=== PATIENT | female | born 1980 | race Caucasian/White ===

== ENCOUNTER 2020-12-19 10:36 | Outpatient (REF) | payer OTHER, SELFPAY ==
--- NOTE | ~2020-12-19 | MM_ITS ---
EXAMINATION: MM SCREENING DIGITAL BREAST TOMOSYNTHESIS, BILATERAL CLINICAL INFORMATION: Screening. Asymptomatic. The lifetime risk of breast cancer based on the Tyrer-Cuzick Model is 19%. COMPARISON: Mammography: 11/09/2019 (baseline) TECHNIQUE: Digital breast tomosynthesis is performed in both the craniocaudal and mediolateral oblique views along with computer-aided detection (CAD). Synthesized 2D images are generated from the tomosynthesis. Additional bilateral exaggerated CC views are provided. FINDINGS: The breasts are heterogeneously dense, which may obscure small masses (ACR BI-RADS breast composition Category c). There are no significant masses, abnormal calcifications, or other abnormalities. There is a group of benign coarse calcifications again seen mid upper outer right breast. The axilla and skin contours are unremarkable. MM/MM tomosynthesis screening BI IMPRESSION: No mammographic evidence of malignancy. ASSESSMENT: BI-RADS 2: Benign RECOMMENDATION: Routine annual mammography screening. This patient's information was entered into a reminder system with a target due date for their next mammogram.
== END 2020-12-19 10:37 | disposition home or self-care (01) ==
LOC: HO.MAMMO 10:36
PROVIDERS: PCP Internal Medicine; Visit Provider Internal Medicine
DX: Z12.31 Encounter for screening mammogram for malignant neoplasm of breast (principal)
CPT/HCPCS: 77063; 77067

== ENCOUNTER 2021-02-21 00:38 | Emergency (ER) | payer MEDICAID, SELFPAY ==
[2021-02-21 00:46] VITALS: BP 146/80; PULSE 56; RESP 18; TEMP 36.3; O2SAT 99; BMI 26.6
[2021-02-21 01:07] LABS: COVID-19 Test Negative (Negative)
--- NOTE | 2021-02-21 01:08 | ED.GENADULT ---
HPI - General Adult General Chief complaint: General Medical Stated complaint: Covid exposure/Cough Time Seen by Provider: 02/21/21 01:07 Source: patient Mode of arrival: ambulatory Limitations: no limitations History of Present Illness HPI narrative: Patient on vaccines against COVID-19 had COVID last year does not believe in COVID vaccine her mother is admitted here with COVID positive patient had cold symptoms 1 week ago now feeling better wanted to get tested for COVID Review of Systems Review of Systems: Yes all other systems are reviewed and are negative FOR[facility]LY [facility] Social History Social History Advance Directives: No Physical Exam Vital Signs: Vital Signs: Last Vital Signs Temp 97.4 F 02/21/21 00:46 Pulse 56 02/21/21 00:46 Resp 18 02/21/21 00:46 BP 146/80 H 02/21/21 00:46 Pulse Ox 99 02/21/21 00:46 BMI result Body Mass Index 26.6 Appearance: Alert. Oriented X3. No acute distress. ENT: Pharynx normal. Oral Mucosa moist Neck: Normal inspection. Neck supple. CVS: Normal heart rate and rhythm. Pulses normal. Respiratory: No respiratory distress. Equal air entry bilateral Abdomen: Soft and nontender. Bowel sounds are present, Skin: Skin warm and dry. Normal skin color. Normal skin turgor. Extremities: No lower extremity edema. No calf tenderness Neuro: Oriented X 3. Medical Decision Making Lab Data Lab results reviewed: Yes I reviewed the patient's lab results. Labs: Lab Results 02/21/21 Range/Units 00:48 COVID-19 ([facility]) Negative (Negative) COVID-19 Clin Com See Note Discharge Plan Discharge Clinical Impression: Close exposure to 2019-nCoV Patient Disposition: Home, Self-Care Instructions: COVID-19 (Coronavirus Disease 2019) (ED) Additional Instructions: Keep social distancing At this time you COVID-19 is negative recheck in few days if symptoms continues/shortness of breath
== END 2021-02-21 01:50 | disposition home or self-care (01) ==
PROVIDERS: Emergency Provider Internal Medicine; PCP Internal Medicine
DX: R05.9 Cough, unspecified (principal); Z20.822 Contact with and (suspected) exposure to COVID-19
CPT/HCPCS: 36415; 87635; 99283

== ENCOUNTER 2021-06-26 11:12 | Outpatient (REF) | payer MEDICAID, SELFPAY ==
[2021-06-26 12:57] LABS: MANUAL DIFF FLAG NO
[2021-06-26 13:10] LABS: Basophils Percent Auto 0.6 % (0-2); Eosinophils Absolute Auto 0.1 X10*3/uL (0.0-0.4); Eosinophils Percent Auto 1.7 % (0-4); Hematocrit 37.9 % (37.0-47.0); Hemoglobin 12.1 g/dl (12.0-16.0); Imm Gran Abs Auto 0.01 X10*3/uL (0.00-0.03); Imm Gran Pct Auto 0.2 % (0.0-0.4); Lymphocytes Absolute Auto 1.4 X10*3/uL (1.2-4.9); Lymphocytes Percent Auto 26.8 % (20-40); Mean Corpuscular HGB Conc 31.9 g/dl (31.0-35.0); Mean Corpuscular Hemoglobin 27.9 pg (27.0-33.0); Mean Corpuscular Volume 87.3 fL (80.0-98.0); Mean Platelet Volume 12.7 fL (9.4-12.3); Monocytes Absolute Auto 0.4 X10*3/uL (0.1-1.2); Monocytes Percent Auto 7.7 % (2-11); Neutrophils Absolute Auto 3.4 x10*3/uL (2.0-8.3); Platelet Count 215 X10*3/uL (160-400); Red Blood Count 4.34 X10*6/uL (4.20-5.50); Red Cell Distribution Width 14.7 % (11.0-16.0); White Blood Count 5.3 X10*3/uL (4.8-10.8)
[2021-06-26 13:32] LABS: Ferritin 10 ng/mL (10-250)
== END 2021-06-26 11:13 | disposition home or self-care (01) ==
LOC: HO.10HDL 11:12
PROVIDERS: Visit Provider Internal Medicine
DX: D50.8 Other iron deficiency anemias (principal)
CPT/HCPCS: 36415; 82728; 85025

== ENCOUNTER 2021-12-23 10:30 | Outpatient (REF) | payer BC, SELFPAY ==
--- NOTE | ~2021-12-23 | MM_ITS ---
EXAMINATION: MM SCREENING DIGITAL BREAST TOMOSYNTHESIS, BILATERAL CLINICAL INFORMATION: Screening. Asymptomatic. The lifetime risk of breast cancer based on the Tyrer-Cuzick Model is 21%. Additional annual screening with breast MRI may be of benefit in women with a score of 20% or greater. COMPARISON: Mammography: December 19, 2020 and November 09, 2019 TECHNIQUE: Digital breast tomosynthesis is performed in both the craniocaudal and mediolateral oblique views along with computer-aided detection (CAD). Synthesized 2D images are generated from the tomosynthesis. FINDINGS: The breasts are extremely dense, which lowers the sensitivity of mammography (ACR BI-RADS breast composition Category d). There are no significant masses, abnormal calcifications, or other abnormalities. MM/MM tomosynthesis screening BI IMPRESSION: No significant change from ASSESSMENT: BI-RADS 1: Negative RECOMMENDATION: Routine annual mammography screening. This patient's information was entered into a reminder system with a target due date for their next mammogram.
== END 2021-12-23 10:31 | disposition home or self-care (01) ==
LOC: HO.MAMMO 10:30
PROVIDERS: Visit Provider Internal Medicine
DX: Z12.31 Encounter for screening mammogram for malignant neoplasm of breast (principal)
CPT/HCPCS: 77063; 77067

== ENCOUNTER 2022-12-26 10:16 | Outpatient (REF) | payer BC, SELFPAY | END 2022-12-26 10:17 | disposition home or self-care (01) | LOC: HO.MAMMO 10:16 | PROVIDERS: PCP Internal Medicine; Visit Provider Internal Medicine | DX: Z12.31 Encounter for screening mammogram for malignant neoplasm of breast (principal) | CPT/HCPCS: 77063; 77067 ==

== ENCOUNTER → 2022-12-26 10:30 | Outpatient (BNV) | payer BC, SELFPAY | PROVIDERS: PCP Internal Medicine; Visit Provider Radiology Diagnostic Radiology | DX: Z12.31 Encounter for screening mammogram for malignant neoplasm of breast (principal) | CPT/HCPCS: 77063; 77067 ==

== ENCOUNTER 2023-06-30 19:49 | Emergency (ER) | payer BC, SELFPAY ==
[2023-06-30 20:55] VITALS: BP 149/84; PULSE 62; RESP 16; TEMP 36.4; O2SAT 100; BMI 26.6
[2023-06-30 22:10] VITALS: BP 128/54; PULSE 51; RESP 12; TEMP 36.4; O2SAT 100
--- NOTE | 2023-06-30 22:15 | PC.NURSE ---
Pt aox4 resting at the bedside. VSS. No apparent distress. Pt reports was cutting bread when accidentally cut index finger left hand. Reports throbbing pain, 4/10. Laceration noted to the tip of the index finger. Not currently bleeding. Bandaid applied. Pending physician eval. Monitoring is ongoing.
--- NOTE | 2023-07-01 01:53 | ED.GENADULT ---
HPI - General Adult General Chief complaint: Wound/Laceration Stated complaint: left pointer finger wound Time Seen by Provider: 07/01/23 01:27 Source: patient Mode of arrival: ambulatory Limitations: no limitations History of Present Illness HPI narrative: Patient left without completing treatment. Patient left before I could evaluate or speak to her. Related Data Allergies Allergy/AdvReac Type Severity Reaction Status Date / Time No Known Allergies Allergy Verified 06/30/23 20:59 [facility] Social History Social History Smoked in Last 30 Days: No Use of substances other than those prescribed or required for medical reasons: No Advance Directives: No Advance Directives Information Provided: No Do you have a plan to hurt others: No Plan Patient : No Physical Exam ED Vital Signs: Vital Signs - 24 hr 06/30/23 20:55 06/30/23 22:10 Temperature 97.5 F 97.6 F Pulse Rate 62 51 Respiratory Rate 16 12 Blood Pressure 149/84 H 128/54 L Pulse Oximetry 100 100 Oxygen Delivery Method Room Air Room Air BMI result Body Mass Index 26.6 Discharge Plan Discharge Clinical Impression: Laceration Patient Disposition: Left W/O Completing Treatment Interventions: LWBS Worksheet Last Done: 07/01/23 02:05 Discharge Date/Time: 07/01/23 02:05
== END 2023-07-01 02:05 | disposition left against medical advice (07) ==
PROVIDERS: Emergency Provider Emergency Medicine Emergency Medical Services; PCP Internal Medicine
DX: S61.211A Laceration without foreign body of left index finger without damage to nail, initial encounter (principal); X58.XXXA Exposure to other specified factors, initial encounter; Y93.9 Activity, unspecified; Y92.9 Unspecified place or not applicable; Y99.9 Unspecified external cause status
CPT/HCPCS: 99281; 99284

== ENCOUNTER 2023-10-30 09:56 | Outpatient (REF) | payer BC, SELFPAY ==
[2023-10-30 10:15] LABS: MANUAL DIFF FLAG NO
[2023-10-30 10:54] LABS: Eosinophils Absolute Auto 0.1 X10*3/uL (0.0-0.4); Eosinophils Percent Auto 1.2 % (0-4); Hematocrit 37.3 % (37.0-47.0); Hemoglobin 12.1 g/dl (12.0-16.0); Imm Gran Abs Auto 0.01 X10*3/uL (0.00-0.03); Imm Gran Pct Auto 0.2 % (0.0-0.4); Lymphocytes Absolute Auto 1.3 X10*3/uL (1.2-4.9); Mean Corpuscular HGB Conc 32.4 g/dl (31.0-35.0); Mean Corpuscular Hemoglobin 27.2 pg (27.0-33.0); Mean Corpuscular Volume 83.8 fL (80.0-98.0); Mean Platelet Volume 12.4 fL (9.4-12.3); Monocytes Absolute Auto 0.4 X10*3/uL (0.1-1.2); Monocytes Percent Auto 8.7 % (2-11); Neutrophils Absolute Auto 2.3 x10*3/uL (2.0-8.3); Neutrophils Percent Auto 56.9 % (45-73); Platelet Count 193 X10*3/uL (160-400); Red Blood Count 4.45 X10*6/uL (4.20-5.50); Red Cell Distribution Width 16.3 % (11.0-16.0)
[2023-10-30 12:25] LABS: Alanine Aminotransferase 10 U/L (0-31); Albumin Level 4.1 g/dL (3.5-5.0); Alkaline Phosphatase 54 U/L (39-117); Anion Gap 7 (12-20); Aspartate Amino Transferase 16 U/L (5-31); Bilirubin Total 0.8 mg/dL (0.0-1.0); Blood Urea Nitrogen 9 mg/dL (9-16); Carbon Dioxide 26 mmol/L (22-29); Chloride 107 mmol/L (96-108); Estimated Glomerular Filt Rate > 60; Glucose Random 91 mg/dL (60-115); Potassium 4.4 mmol/L (3.3-5.1); Sodium 136 mmol/L (135-145); Total Protein 6.9 g/dL (6.5-8.0)
== END 2023-10-30 09:57 | disposition home or self-care (01) ==
LOC: HO.LAB 09:56
PROVIDERS: PCP Internal Medicine; Visit Provider Internal Medicine
DX: Z00.00 Encounter for general adult medical examination without abnormal findings (principal); D50.8 Other iron deficiency anemias; Z68.29 Body mass index [BMI] 29.0-29.9, adult
CPT/HCPCS: 36415; 80053; 85025

== ENCOUNTER 2023-12-02 15:18 | Outpatient (REF) | payer BC, SELFPAY ==
[2023-12-02 15:39] LABS: MANUAL DIFF FLAG NO
[2023-12-02 15:52] LABS: Basophils Absolute Auto 0.1 X10*3/uL (0.0-0.2); Basophils Percent Auto 0.8 % (0-2); Eosinophils Absolute Auto 0.1 X10*3/uL (0.0-0.4); Eosinophils Percent Auto 1.3 % (0-4); Hematocrit 34.7 % (37.0-47.0); Hemoglobin 11.2 g/dl (12.0-16.0); Imm Gran Abs Auto 0.03 X10*3/uL (0.00-0.03); Imm Gran Pct Auto 0.5 % (0.0-0.4); Lymphocytes Absolute Auto 1.8 X10*3/uL (1.2-4.9); Lymphocytes Percent Auto 28.5 % (20-40); Mean Corpuscular HGB Conc 32.3 g/dl (31.0-35.0); Mean Corpuscular Hemoglobin 27.5 pg (27.0-33.0); Mean Corpuscular Volume 85.3 fL (80.0-98.0); Mean Platelet Volume 12.2 fL (9.4-12.3); Monocytes Absolute Auto 0.5 X10*3/uL (0.1-1.2); Monocytes Percent Auto 7.3 % (2-11); Neutrophils Absolute Auto 3.9 x10*3/uL (2.0-8.3); Neutrophils Percent Auto 61.6 % (45-73); Platelet Count 218 X10*3/uL (160-400); Red Blood Count 4.07 X10*6/uL (4.20-5.50); Red Cell Distribution Width 15.7 % (11.0-16.0); White Blood Count 6.3 X10*3/uL (4.8-10.8)
[2023-12-02 16:45] LABS: Thyroid Stimulating Hormone 2.88 uIU/mL (0.32-4.0)
== END 2023-12-02 15:19 | disposition home or self-care (01) ==
LOC: HO.LAB 15:18
PROVIDERS: PCP Internal Medicine; Visit Provider Internal Medicine
DX: Z00.00 Encounter for general adult medical examination without abnormal findings (principal); D50.9 Iron deficiency anemia, unspecified; N92.4 Excessive bleeding in the premenopausal period; Z13.31 Encounter for screening for depression
CPT/HCPCS: 36415; 84443; 85025

== ENCOUNTER 2024-01-01 10:23 | Outpatient (REF) | payer BC, SELFPAY ==
--- NOTE | ~2024-01-01 | MM_ITS ---
EXAMINATION: MM SCREENING DIGITAL BREAST TOMOSYNTHESIS, BILATERAL CLINICAL INFORMATION: Screening. Asymptomatic. COMPARISON: Mammography: Comparison is made with available priors TECHNIQUE: Digital breast mammography with tomosynthesis is performed in both the craniocaudal and mediolateral oblique views along with computer-aided detection (CAD). FINDINGS: The breasts are heterogeneously dense, which may obscure small masses (ACR BI-RADS breast composition Category c). Left: Asymmetry lateral breast posterior depth on CC view. No suspicious calcifications or other abnormal findings. Right: Focal asymmetry upper outer breast posterior depth. No suspicious calcifications or other abnormal findings. MM/MM tomosynthesis screening BI IMPRESSION: Additional imaging is recommended ASSESSMENT: BI-RADS BI-RADS 0 - Incomplete: Needs additional Imaging. RECOMMENDATION: 1. Additional views of the bilateral breasts 2. Targeted ultrasound if warranted after review of the additional views. 3. Radiology department staff will contact the patient for additional imaging. Additional Imaging required This examination should not preclude the clinical evaluation of a suspicious palpable abnormality. This patient's information was entered into a reminder system with a target due date for their next mammogram. Electronically signed by: Alecia Monreal DO 01/11/2024 07:37 PM EST
== END 2024-01-01 10:24 | disposition home or self-care (01) ==
LOC: HO.MAMMO 10:23
PROVIDERS: PCP Internal Medicine; Visit Provider Internal Medicine
DX: Z12.31 Encounter for screening mammogram for malignant neoplasm of breast (principal)
CPT/HCPCS: 77063; 77067

== ENCOUNTER → 2024-01-01 10:30 | Outpatient (BNV) | payer BC, SELFPAY | PROVIDERS: PCP Internal Medicine; Visit Provider Internal Medicine | DX: Z12.31 Encounter for screening mammogram for malignant neoplasm of breast (principal) | CPT/HCPCS: 77063; 77067 ==

== ENCOUNTER 2024-02-10 14:23 | Outpatient (REF) | payer BC, SELFPAY ==
--- NOTE | ~2024-02-10 | US_ITS ---
EXAMINATION: MM DIAGNOSTIC DIGITAL BREAST TOMOSYNTHESIS, BILATERAL Bilateral Limited ultrasound. CLINICAL INFORMATION: Call back from screening for focal asymmetry in the upper outer right breast and asymmetry in the lateral left breast on CC view. Patient has a strong family history of breast cancer including multiple maternal aunts who from breast cancer in their 50s and 60s. COMPARISON: Mammography: Comparison is made with relevant prior exams. TECHNIQUE: Digital breast mammography with tomosynthesis is performed in both the craniocaudal and mediolateral oblique views along with computer-aided detection (CAD). Bilateral Limited ultrasound. FINDINGS: There are scattered areas of fibroglandular density (ACR BI-RADS breast composition Category b). Left: The previously seen asymmetry in the lateral left breast on CC view does not persist on additional imaging projections and likely represented overlapping breast tissue. Targeted color Doppler ultrasound scanning in the lateral left breast 1-5 o'clock demonstrates normal fibroglandular breast tissue. Right: Focal asymmetry upper outer breast does not persist on additional imaging projections. No suspicious calcifications or other abnormal findings. Targeted color Doppler ultrasound scanning in the right breast upper outer quadrant demonstrates an incidental simple cyst at 9:00 9 cm from the nipple measuring 4 x 2 x 3 mm. There is a hypoechoic solid mass at 4 7 m nipple measuring 12 x 10 x 13 mm. Results are discussed with the patient at time of visit. US/US breast BI limited mamm only IMPRESSION: Left: Negative. Right: Solid mass at 10:00 4 cm from the nipple. Given patient's strong family history of breast cancer The findings and recommendations were discussed with the patient the procedure will be scheduled. In addition breast MRI with contrast yearly screening should be considered for further evaluation given patient's strong family history of breast cancer. ASSESSMENT: BI-RADS BI-RADS 4 - Suspicious finding RECOMMENDATION: Right breast Ultrasound biopsy recommended. This patient's information was entered into a reminder system with a target due date for their next mammogram. Electronically signed by: Alecia Monreal DO 02/10/2024 03:32 PM [facility]
== END 2024-02-10 14:24 | disposition home or self-care (01) ==
LOC: HO.MAMMO 14:23
PROVIDERS: PCP Internal Medicine; Visit Provider Internal Medicine
DX: N63.11 Unspecified lump in the right breast, upper outer quadrant (principal); N64.89 Other specified disorders of breast; Z80.3 Family history of malignant neoplasm of breast
CPT/HCPCS: 76642; 77062; 77066

== ENCOUNTER → 2024-02-10 15:00 | Outpatient (BNV) | payer BC, SELFPAY | PROVIDERS: PCP Internal Medicine; Visit Provider Internal Medicine | DX: N63.11 Unspecified lump in the right breast, upper outer quadrant (principal); Z80.3 Family history of malignant neoplasm of breast; R92.323 Mammographic fibroglandular density, bilateral breasts | CPT/HCPCS: 76642; 77062; 77066 ==

== ENCOUNTER 2024-03-09 09:15 | Outpatient (AMB) | payer BC, SELFPAY ==
--- NOTE | 2024-03-09 09:17 | A.OFFVIS_ITS ---
Vital Signs 03/09/24 09:23 Height 5 ft 4 in Weight 153 lb BMI 26.3 Intake Visit Reasons: (R) Breast US BX 10:00 Intake Note: This patient presents for right breast ultrasound guided biopsy for 10 o'clock mass. Pt c/o: reports dense breast, reports discomfort. Accompanied by: Friend Allergies No Known Allergies Allergy (Verified 03/09/24 09:24) Medication List - Last Reconciled 03/09/24 by Mango Funez MD No Known Home Meds HPI HPI (R) Breast US BX 10:00: Details: 43-year-old female referred for a right breast mass. She had undergone scr eening mammogram last month and this showed excision of a mass on the right breast. She was brought in for targeted mammogram and ultrasound. This showed us solid mass, about 12 mm in size, at the 10 o'clock position. She was recommended to undergo biopsy via ultrasound as she has significant family history She says that she is unable to feel this mass She denies any breast changes She says that 5 of her mother's half sisters had a history of breast cancer. Her menarche was at age of 11. She has never been . She still has her menses. PFSH Medical History Breast mass, right Surgical History No pertinent past surgical history Family History Maternal Aunt Breast cancer Maternal Aunt Breast cancer Maternal Aunt Breast cancer Maternal Aunt Breast cancer Maternal Aunt Breast cancer Mother Brain cancer Female Reproductive History Menstrual Age of Menarche: 11 Total pregnancies: 0 Review of Systems Const Denies chills and Denies fever(s) Card Denies chest pain, Denies dyspnea and Denies dyspnea on exertion Resp Denies cough, Denies dyspnea and Denies dyspnea on exertion GI Denies hematochezia and Denies change in bowel habits Denies hematuria Musc Denies back pain and Denies limited range of motion Neuro Denies focal weakness and Denies convulsions Psych Denies depression and Denies mood swings Physical Exam Vital Signs: BMI result Body Mass Index 26.3 Const General: comfortable and no acute distress Orientation/consciousness: patient oriented x3 Neck Neck: Yes no lymphadenopathy Resp Auscultation: clear to auscultation bilaterally Cardio Rhythm: regular rhythm GI Palpation (GI): Soft to palpation, nontender and no guarding Neuro General: patient oriented x3 Assessment & Plan Assessment & Plan (1) Breast mass, right: Code(s): N63.10 - Unspecified lump in the right breast, unspecified quadrant Category: Medical Plan: She has a right breast mass seen on imaging studies as described above. An ultrasound-guided biopsy had been recommended I explained to her the technique of this procedure I will see her again in the office next week to discuss the path report. Orders: Orders US breast ndl core biopsy RT 03/07/24 N63.10 - Unspecified lump in the right breast, unspecified quadrant Coding Level of Care Code New Pt Level 3 (30446) Diagnoses Breast mass, right N63.10
[2024-03-09 09:23] VITALS: BMI 26.3
== END 2024-03-09 09:49 | disposition home or self-care (01) ==
PROVIDERS: PCP Internal Medicine; Visit Provider Surgery
DX: N63.10 Unspecified lump in the right breast, unspecified quadrant (principal)
CPT/HCPCS: 99203

== ENCOUNTER 2024-03-09 09:52 | Outpatient (REF) | payer BC, SELFPAY ==
--- NOTE | ~2024-03-09 | MM_ITS ---
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 Results are benign and concordant. Recommend return to annual screening. Electronically signed by: Alecia Monreal DO 03/14/2024 01:35 PM EST RP ORIGINAL REPORT PROCEDURE: ULTRASOUND-GUIDED RIGHT BREAST BIOPSY CLINICAL INFORMATION: Right breast mass ultrasound biopsy recommended. COMPARISON: Comparison is made with available prior examinations. TECHNIQUE: The details of the procedure, as well as the risks, benefits, and alternatives to the procedure were explained to the patient in detail and all of her questions were answered, after which, written informed consent was obtained. PROCEDURE: Prior to the procedure, sonography revealed a solid mass at 10:00 in the right breast. A time-out was performed, the lesion intended for biopsy was targeted and the skin of the right breast was then prepped and draped in the usual sterile fashion. Using sonographic guidance, sterile technique, and 1% lidocaine without epinephrine for local anesthesia, a total of 4 cores were obtained through the targeted area with a 13-gauge biopsy device. At the completion of tissue sampling, a single butterfly metallic clip was deposited at the biopsy site. An appropriate sample was obtained. The postprocedure 2-view direct digital mammogram reveals satisfactory positioning of the biopsy clip. The patient tolerated the procedure well and, after assuring adequate hemostasis, was discharged in good condition after reviewing postbiopsy breast care instructions. Final pathology results are pending. IMPRESSION: 1. Uncomplicated sonographically-guided core biopsy of the right breast. The 2-view direct digital postprocedure mammogram reveals satisfactory positioning of the biopsy clip. 2. Final pathology results are pending. A separate report with final recommendations will be issued once these results are made available. Electronically signed by: Alecia Monreal DO 03/09/2024 10:51 AM EST RP MM/MM tomosynthesis diagnostic RT IMPRESSION: 1. Uncomplicated sonographically-guided core biopsy of the right breast. The 2-view direct digital postprocedure mammogram reveals satisfactory positioning of the biopsy clip. 2. Final pathology results are pending. A separate report with final recommendations will be issued once these results are made available. Electronically signed by: Alecia Monreal DO 03/09/2024 10:51 AM [facility]
[2024-03-09] MEDS: Sodium Bicarbonate 8.4% 50 MEQ/50 ML VIAL SUBCUT (10:47)
[2024-03-09] MEDS: Lidocaine HCl 1 % 20 ML VIAL 14 ML SUBCUT (10:48)
== END 2024-03-09 09:53 | disposition home or self-care (01) ==
LOC: HO.MAMMO 09:52
PROVIDERS: PCP Internal Medicine; Visit Provider Surgery
DX: N63.11 Unspecified lump in the right breast, upper outer quadrant (principal)
CPT/HCPCS: 19083; 77061; 77065; 88305; J2003

== ENCOUNTER → 2024-03-09 10:00 | Outpatient (BNV) | payer BC, SELFPAY | PROVIDERS: PCP Internal Medicine; Visit Provider Internal Medicine | DX: N63.11 Unspecified lump in the right breast, upper outer quadrant (principal) | CPT/HCPCS: 19083; 77065 ==

== ENCOUNTER 2024-03-17 09:18 | Outpatient (AMB) | payer BC, SELFPAY ==
[2024-03-17 09:19] VITALS: BMI 26.3
--- NOTE | 2024-03-17 09:19 | MHC.OFFVIS ---
Vital Signs 03/17/24 09:19 Height 5 ft 4 in Weight 153 lb 0.013 oz BMI 26.3 Intake Visit Reasons: s/p (R) Breast US BX 10:00 Intake Note: This patient presents for breast biopsy results. Pt c/o; no concerns. 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 She tolerated procedure well. She admits to a little bit of bruising. She is here to discuss the path report [facility] Medical History (Updated 03/17/24 @ 09:32 by Mango Funez MD) Family history of breast cancer Breast mass, right Surgical History No pertinent past surgical history Family History Maternal Aunt Breast cancer Maternal Aunt Breast cancer Maternal Aunt Breast cancer Maternal Aunt Breast cancer Maternal Aunt Breast cancer Mother Brain cancer Female Reproductive History Menstrual Age of Menarche: 11 Review of Systems Const Denies chills and Denies fever(s) Card Denies chest pain GI Denies abdominal pain Physical Exam Vital Signs: BMI result Body Mass Index 26.3 Const General: comfortable and no acute distress Chest Other: No cellulitis infection on the biopsy site Resp Effort & Inspection: normal respiratory effort Assessment & Plan Assessment & Plan (1) Breast mass, right: Code(s): N63.10 - Unspecified lump in the right breast, unspecified quadrant Category: Medical Plan: Status post ultrasound biopsy. Her path report shows fibroadenoma. I explained to her the benign nature of this pathology. (2) Family history of breast cancer: Code(s): Z80.3 - Family history of malignant neoplasm of breast Category: Medical Plan: She describes 5 maternal aunts with breast cancer. I explained to her the option of proceeding with genetic testing with [facility]. I reviewed with her the implications of this test to herself and her family She is interested in genetic testing so she we will schedule her for genetic counseling and genetic testing in the office. Coding Level of Care Code Est Pt Level 3 (79760) Diagnoses Breast mass, right N63.10 Family history of breast cancer Z80.3
== END 2024-03-17 09:31 | disposition home or self-care (01) ==
PROVIDERS: PCP Internal Medicine; Visit Provider Surgery
DX: N63.10 Unspecified lump in the right breast, unspecified quadrant (principal); Z80.3 Family history of malignant neoplasm of breast
CPT/HCPCS: 99213

== ENCOUNTER 2025-02-22 16:38 | Emergency (ER) | payer BC, SELFPAY ==
--- NOTE | 2025-02-22 16:51 | ED_ITS ---
HPI - General Adult General Chief complaint: Dyspnea Stated complaint: Diagnosed with the flu SOB Time Seen by Provider: 02/22/25 18:13 Source: patient, RN notes reviewed and old records reviewed Mode of arrival: ambulatory Limitations: no limitations History of Present Illness ED Provider: Tiffanie HPI narrative: 44-year-old female presents for evaluation of flu-like symptoms. She reports 3 days of coughing, congestion, runny nose pain She reports she had some nausea and vomiting which has since resolved pain Today she developed dizziness and some shortness of breath which has been prompting her to seek medical care pain She denies any history of asthma, COPD, she is a nonsmoker. No other complaints or concerns at this time Related Data Home Medications ?Medication ?Instructions ?Recorded ?Confirmed No Known Home Meds 03/09/24 03/17/24 Allergies Allergy/AdvReac Type Severity Reaction Status Date / Time No Known Allergies Allergy Verified 02/22/25 16:52 Review of Systems Constitutional: Constitutional: Reports body ache(s), Reports chills, Reports fever(s) and Reports headache(s) Eyes: Eyes: Denies blurry vision ENT: Reports headache(s) and Denies sore throat Cardiovascular: Cardiovascular: Denies chest pain and Reports dyspnea Respiratory: Respiratory: Reports cough, Reports pain with cough and Reports dyspnea Gastrointestinal: Gastrointestinal: Denies abdominal pain, Denies nausea and Denies vomiting Musculoskeletal: Musculoskeletal: Denies back pain and Reports myalgias Integumentary/Breasts: Skin/Breast: Denies rash Neurologic: Reports headache(s) Psychiatric: Psychiatric: Denies anxiety PMF Past Medical History Medical History (Updated 02/22/25 @ 18:21 by Mathew Moreno) Family history of breast cancer Breast mass, right Surgical History No pertinent past surgical history Family History Family History Maternal Aunt Breast cancer Maternal Aunt Breast cancer Maternal Aunt Breast cancer Maternal Aunt Breast cancer Maternal Aunt Breast cancer Mother Brain cancer Social History Social History Advance Directives: No Advance Directives Information Provided: No Physical Exam ED Vital Signs: Vital Signs - 24 hr 02/22/25 16:52 02/22/25 18:22 Temperature 97.2 F 97.2 F Pulse Rate 68 68 Respiratory Rate 16 16 Blood Pressure 135/68 135/68 Pulse Oximetry 99 99 Oxygen Delivery Method Room Air Room Air BMI result Body Mass Index 28.3 Const General: healthy appearing, comfortable, no acute distress, alert and awake Nutritional Appearance: well nourished Orientation/consciousness: patient oriented x3 HENMT Head: Yes normocephalic and Yes atraumatic Throat: Yes posterior oropharynx normal Eyes Eyelids: Yes eyelids normal Conjunctivae: conjunctivae normal Sclerae: sclerae normal Corneas: corneas normal Pupils: Equal, round and reactive pupils present EOM: EOMs intact bilaterally Neck Neck: Yes full ROM Resp Effort & Inspection: normal respiratory effort, able to speak in complete sentences, no audible wheezes and not labored Auscultation: clear to auscultation bilaterally Cardio Rate: regular rate Rhythm: regular rhythm GI Inspection: No distended Palpation (GI): Soft to palpation, not firm, nontender, no guarding and not rigid Skin General skin exam: elasticity normal Neuro General: patient oriented x3 Cranial nerves: Yes Equal, round and reactive pupils present and Yes Bilaterally intact EOM present Cognition (Neuro): normal cognition Extrem Other: Moving all extremities well without any obvious deformities Course Course Course Narrative: This is a rapid medical exam performed by Lewis Navarrete NP: Additional HPI, ROS, PE not included below will be deferred to primary provider. Patient is a 44y/o F presenting to the ED with complaint of shortness of breath for the past 4 d ays, fevers, vomiting and diarrhea. Plan: viral serology Medical Decision Making Medical Decision Making MDM Narrative: 44-year-old female presents for evaluation of flu-like symptoms. Her vital signs have been normal limits, physical exam is reassuring, she did not infectious positive for influenza. She is outside the window for Tamiflu treatment. We will continue symptomatic care, she is stable for discharge. Consider chest x-ray, but given that she is afebrile, she is not hypoxic or tac hypneic in her lungs are clear to auscultation this was deferred Differential Diagnosis Differential Diagnoses: The differential diagnosis associated with the presentation includes influenza COVID-19 RSV Bronchitis Pneumonia Lab Data Labs: Lab Results 02/22/25 Range/Units 17:00 Influenza Type A (PCR) POSITIVE A (Negative) Influenza Type B (PCR) NEGATIVE (Negative) RSV RNA Qual (PCR) NEGATIVE (Negative) SARS-CoV-2 RNA (RT-PCR) NEGATIVE (Negative) Discharge Plan Discharge Clinical Impression: Influenza A Patient Disposition: Home, Self-Care Instructions: Influenza (ED) Additional Instructions: you tested positive for influenza A. Use ibuprofen or Tylenol for any fevers or body aches. Your vital signs were within normal limits and your lungs are clear to auscultation. You should begin to improve in the next few days follow up with your doctor, return for any new or worsening symptoms Prescriptions: No Action No Known Home Meds Interventions: ED Discharge Assessment Last Done: 02/22/25 18:22 Discharge Date/Time: 02/22/25 18:23 Print Language: Chadian
[2025-02-22 16:52] VITALS: BP 135/68; PULSE 68; RESP 16; TEMP 36.2; O2SAT 99; BMI 28.3
[2025-02-22 18:04] LABS: Resp Syncy Virus RNA Qual PCR NEGATIVE (Negative); SARS COV2 PCR INHOUSE NEGATIVE (Negative)
[2025-02-22 18:22] VITALS: BP 135/68; PULSE 68; RESP 16; TEMP 36.2; O2SAT 99
== END 2025-02-22 18:23 | disposition home or self-care (01) ==
PROVIDERS: Registered Nurse Emergency; Emergency Provider Emergency Medicine; PCP Internal Medicine
DX: J10.1 Influenza due to other identified influenza virus with other respiratory manifestations (principal); R05.9 Cough, unspecified; Z03.818 Encounter for observation for suspected exposure to other biological agents ruled out
CPT/HCPCS: 87637; 99282; 99283